=== PATIENT | male | born 2000 | race Two or more races ===

== ENCOUNTER 2023-04-03 22:20 | Emergency (ER) | payer SELFPAY ==
[~2023-04-03] VITALS: Ht 170.2 cm; Wt 84.5 kg
[2023-04-04 00:42] LABS: Basophils # (auto) 0.3 10 ^3/uL (0-0.2); Basophils % (auto) 1.4 % (0.0-2.0); Eosinophils # (auto) 0.2 10 ^3/uL (0-0.8); Eosinophils % (auto) 0.7 % (0.0-7.0); Hematocrit 45.8 % (41.0-53.0); Hemoglobin 16.1 g/dL (13.5-17.5); Lymphocytes % (auto) 21.5 % (10.0-50.0); Mean Corpuscular Hemoglobin 32.2 pg (28.0-32.0); Mean Corpuscular Volume 91.9 fL (80.0-100.0); Monocytes # (auto) 1.6 10 ^3/uL (0-1.3); Neutrophils # (auto) 16.2 10 ^3/uL (1.6-8.6); Neutrophils % (auto) 69.4 % (37.0-80.0); Nucleated Red Blood Cells % 0.3 %; Red Blood Cells 4.99 10^6/uL (4.5-5.90); Red Cell Distribution Width 12.9 % (11.8-14.3); White Blood Cell 23.4 10^3/uL (4.4-10.8)
[2023-04-04 01:00] LABS: Albumin 4.2 g/dL (3.4-5.0); Calcium 8.2 mg/dL (8.5-10.1)
[2023-04-04 01:16] LABS: BUN/Creatinine Ratio 12.2 (10.0-20.0); Bilirubin, Total 0.4 mg/dL (0.2-1.0); Total Protein 7.6 g/dL (6.4-8.2)
[2023-04-04] MEDS ORDERED: LACTATED RINGER'S 2,000 ML IV ONE (01:45)
[2023-04-04] MEDS ORDERED: POTASSIUM EFFERVESENT TAB 25 MEQ PO ONE (01:45)
[2023-04-04 02:02] VITALS: BP 136/79
[2023-04-04 03:52] LABS: Urine Bacteria NONE SEEN /hpf (None Seen); Urine Blood Negative /uL (Negative); Urine Hyaline Cast FEW /lpf (0 - 2); Urine Mucus FEW (None Seen); Urine Specific Gravity 1.011 (1.001-1.035); Urine WBC 1 /hpf (0 - 3)
[2023-04-04 04:03] LABS: Amphetamine Screen, Urine NEGATIVE (NEGATIVE); Barbiturate Scree,Urine NEGATIVE (NEGATIVE); Benzodiazephine Screen, Urine NEGATIVE (NEGATIVE); Cannabinoid Screen, Urine POSITIVE (NEGATIVE)
[2023-04-04 04:11] LABS: Cocaine Screen, Urine POSITIVE (NEGATIVE); Opiate Scree,Urine NEGATIVE (NEGATIVE); Phencyclidine Screen, Urine NEGATIVE (NEGATIVE)
== END 2023-04-04 05:00 | disposition home or self-care (01) ==
LOC: ER 22:20
DX: T40.5X1A Poisoning by cocaine, accidental (unintentional), initial encounter (principal); E87.6 Hypokalemia; D72.828 Other elevated white blood cell count; E83.51 Hypocalcemia; Y92.89 Other specified places as the place of occurrence of the external cause
CPT/HCPCS: 36415; 80053; 80307; 80320; 81001; 85025; 96360; 96361